=== PATIENT | male | born 1975 | race Caucasian/White ===

== ENCOUNTER → 2021-08-08 09:06 | Outpatient (CLI) | payer OTHER, SELFPAY ==
--- NOTE | ~2021-08-08 | MR_ITS ---
EXAMINATION: MR cervical spine wo con DATE: 08/08/2021 09:52 INDICATION: Cervical radiculopathy TECHNIQUE: Magnetic resonance imaging (MRI) of the cervical spine was performed without intravenous c ontrast. Sequences included sagittal T2-weighted FSE, sagittal T2-weighted FS FSE, sagittal T1-weight ed FSE, axial MERGE and axial T2-weighted FSE. COMPARISON: None FINDINGS: Mild kyphosis at the lower cervical spine. Vertebral body heights are normal. Bone marrow signal is normal. Disc desiccation without significant disc height loss at C3-C4, with mild disc height loss at C4-C5 and C6-C7 and moderate disc height loss at C5-C6. There are annular fissures at both C5-C6 and C6-C7. Cord signal intensity is normal. Cervical soft tissues are unremarkable. The following disc l evels are specifically discussed: C2-C3: The disc does not extend beyond the endplate margin. There is no uncovertebral joint osteoarth ritis. There is mild to moderate right and moderate left facet joint osteoarthritis. There is mild le ft neural foraminal stenosis. There is no central canal stenosis. C3-C4: The disc does not extend beyond the endplate margin. There is mild left and minimal right unco vertebral joint osteoarthritis. There is mild bilateral facet joint osteoarthritis. There is mild lef t neural foraminal stenosis. There is no central canal stenosis. C4-C5: The disc does not extend beyond the endplate margin. There is mild bilateral uncovertebral marli nt osteoarthritis. There is mild right and moderate left facet joint osteoarthritis. There is minimal left neural foraminal stenosis. There is no central canal stenosis. C5-C6: Annular fissure with right central to foraminal zone disc protrusion. There is mild left and s evere right uncovertebral joint osteoarthritis. There is mild bilateral facet joint osteoarthritis. T here is mild left and moderate right neural foraminal stenosis. There is mild right-sided predominant central canal stenosis measuring 10 mm AP in the mid sagittal plane and with flattening of the right ventral surface of the cord with small amount of CSF signal seen posterior to the cord. C6-C7: Disc is bulging with annular fissure. There is moderate left and severe right uncovertebral anjali int osteoarthritis. There is mild bilateral facet joint osteoarthritis. There is mild left and modera te right neural foraminal stenosis. There is mild central canal stenosis measuring 10 mm AP in the mi d sagittal plane. There is intention of the anterior surface of the cord with minimal CSF signal post erior to the cord. C7-T1: The disc does not extend beyond the endplate margin. There is no uncovertebral joint osteoarth ritis. There is mild bilateral facet joint osteoarthritis. There is no neural foraminal stenosis. The re is no central canal stenosis. IMPRESSION: 1. Moderate lower cervical predominant spondylosis. Reviewed, dictated and finalized at location A. [employer]
== END ==
PROVIDERS: PCP Internal Medicine; Visit Provider Internal Medicine
DX: M47.22 Other spondylosis with radiculopathy, cervical region (principal)
CPT/HCPCS: 72141